=== PATIENT | male | born 2000 ===

== ENCOUNTER → 2024-04-30 17:03 | Outpatient (CLI) | payer MEDICAID, SELFPAY | PROVIDERS: Visit Provider Nurse Practitioner Family | DX: R30.0 Dysuria (principal) | CPT/HCPCS: 87086 ==

== ENCOUNTER → 2024-04-30 17:42 | Outpatient (CLI) | payer MEDICAID, SELFPAY ==
--- NOTE | 2024-04-30 17:45 | DI.RAD.S_ITS ---
PROCEDURE: XR KUB INDICATIONS: Hematuria TECHNIQUE: One view of the abdomen acquired. COMPARISON: None. FINDINGS: Surgical changes and devices: None. Bowel: Bowel gas pattern is normal. Soft tissues: There are tiny (less than 3 mm) calcifications overlying the distal left and right ureter in the true pelvis. There most likely phleboliths. Ureteral stones not excluded Bones: No suspicious bony lesions. IMPRESSION: Small pelvic calcifications more likely phlebolith than ureteral stones Dictated by: Raad Wilks M.D. on 05/01/2024 at 17:48 Approved by: Raad Wilks M.D. on 05/01/2024 at 17:49
== END ==
LOC: RAD 17:44
PROVIDERS: Referring Provider Nurse Practitioner Family; Visit Provider Nurse Practitioner Family
DX: R31.9 Hematuria, unspecified (principal); R30.0 Dysuria
CPT/HCPCS: 74018; 81002; 87086